=== PATIENT | female | born 2000 ===

== ENCOUNTER → 2023-08-18 | Outpatient (REF) | payer BC ==
[2023-08-18 19:13] LABS: GC DNA AMPLIFICATION NEGATIVE (NEGATIVE)
== END ==
LOC: M LAB REF 17:00
PROVIDERS: ATTEND Registered Nurse
DX: R35.0 Frequency of micturition (principal); Z11.3 Encounter for screening for infections with a predominantly sexual mode of transmission; R30.0 Dysuria